=== PATIENT | male | born 1945 | race Caucasian/White ===

== ENCOUNTER → 2017-10-06 | Day surgery (SDC) | payer MEDICARE ==
[~2017-10-06] MED LIST: ATOR40TA16; GABA300C5; LACTATED RINGER'S 1000 ML INJ 1,000 ML ONE; OMEP20CA2; PROPOFOL 100 MG/10 ML INJ IV ONE; VENL37.595; VERA40TA
--- NOTE | 2017-10-06 10:38 | GIPROC ---
[facility] [address] [place], [address] COLONOSCOPY PROCEDURE REPORT EXAM DATE: 10/06/2017 PATIENT NAME: Christian Daniels MR #: [id number] BIRTHDATE: 1945 ENDOSCOPIST: Jonnie Dietrich MD ORDER #: [id number] [facility] RESIDENT: Ami Bansal STATUS: outpatient INDICATIONS: The patient is a 72 yr old male here for a colonoscopy due to patient's immediate family history of colon cancer PROCEDURE PERFORMED: Colonoscopy, screening MEDICATIONS: None, Per Anesthesia, None, and Per Anesthesia. PREP QUALITY: good ESTIMATED BLOOD LOSS: None CONSENT: The patient understands the risks and benefits of the procedure and understands that these risks include, but are not limited to: sedation, allergic reaction, infection, perforation and/or bleeding. Alternative means of evaluation and treatment include, among others: physical exam, x-rays, and/or surgical intervention. The patient elects to proceed with this endoscopic procedure. medical equipment was checked for proper function. Hand hygiene and appropriate measures for infection prevention was taken. After the risks, benefits and alternatives of the procedure were thoroughly explained, Informed consent was verified, confirmed and timeout was successfully executed by the treatment team. A digital exam revealed no abnormalities of the rectum The [id number] ([id number]) endoscope was introduced through the anus and advanced to the cecum, which was identified by both the appendix and ileocecal valve. The instrument was then slowly withdrawn as the colon was fully examined. COLON FINDINGS: The colonic mucosa appeared normal. Retroflexed views revealed no abnormalities The scope was then completely withdrawn from the patient and the procedure terminated. PROCEDURE WITHDRAWAL TIME:12.4minutes ADVERSE EVENTS: There were no complications. IMPRESSIONS: 1. The colonic mucosa appeared normal 2. Retroflexed views revealed no abnormalities 3. Revealed no abnormalities of the rectum RECOMMENDATIONS: 1. High fiber diet 2. Yearly hemoccult 3. Follow-up: GI Clinic PRN RECALL: Return 5 years Colonoscopy Jonnie Dietrich MD eSigned: Jonnie Dietrich MD 10/06/2017 10:37 AM cc: Lisset Martinez M.D.
== END | disposition home or self-care (01) ==
LOC: ESDC 07:41
PROVIDERS: ATTEND Internal Medicine Gastroenterology
DX: Z12.11 Encounter for screening for malignant neoplasm of colon (principal); Z80.0 Family history of malignant neoplasm of digestive organs
CPT/HCPCS: 00812; 45378; J7120

== ENCOUNTER 2017-10-14 05:58 | Inpatient (IN) | payer MEDICARE ==
[~2017-10-14] VITALS: Ht 167.6 cm; Wt 68.4 kg
[~2017-10-14 05:58] MED LIST changes: -ATOR40TA16; +ATOR40TA16 PO; -GABA300C5; +GABA300C5 PO; -LACTATED RINGER'S 1000 ML INJ 1,000 ML ONE; -OMEP20CA2; +OMEP20CA2 PO; -PROPOFOL 100 MG/10 ML INJ IV ONE; +TAMS0.4C4 PO; -VENL37.595; +VENL37.595 PO; -VERA40TA; +VERA40TA PO
[2017-10-14] MEDS ORDERED: LACTATED RINGER'S 1000 ML INJ 1,000 ML IV SCH (06:30)
[2017-10-14] MEDS ORDERED: LACTATED RINGER'S 1000 ML IV PRN (06:30)
[2017-10-14] MEDS ORDERED: SODIUM CHLORID 0.9% 500 ML IV PRN (06:30)
[2017-10-14] MEDS ORDERED: POVIDONE IODINE 5% (ANTISEPSIS KIT) 4 APPLICATIONS EACH NARE PRN (06:30)
[2017-10-14] MEDS ORDERED: METOPROLOL TARTRATE 25 MG TAB PO PRN (06:30)
[2017-10-14] MEDS ORDERED: CHLORHEXIDINE GLUCONATE 2 % 1 PACK (2 CLOTHS) TOPICAL PRN (06:30)
[2017-10-14] MEDS ORDERED: THROMBIN (TOPICAL) 5,000 UNIT VIAL ONE (07:21)
[2017-10-14] MEDS ORDERED: HEPARIN SODIUM - IV 10,000 UNITS/10 ML VIAL ONE (07:22)
[2017-10-14] MEDS ORDERED: GELFOAM SIZE 100 ONE (07:22)
[2017-10-14] MEDS ORDERED: BUPIVACAINE HCL PF 0.25% 30 ML VIAL ONE (07:22)
[2017-10-14] MEDS ORDERED: GENTAMICIN SULFATE 80 MG/2 ML VIAL ONE (07:22)
[2017-10-14] MEDS ORDERED: LIDOCAINE 1%/EPINEPHrine 1:100,000 SOLN 30 ML VIAL ONE (07:23)
[2017-10-14] MEDS ORDERED: HEPARIN SODIUM - SQ 10,000 UNITS/ML VIAL ONE (07:25)
[2017-10-14] MEDS ORDERED: BUPIVACAINE LIPOSOME PF 1.3% 20 ML VIAL ONE (07:41)
[2017-10-14] MEDS ORDERED: ACETAMINOPHEN 1000 MG/100 ML 100 ML IV ONE (08:12)
[2017-10-14] MEDS ORDERED: PROPOFOL 500 MG/50 ML INJ 100 ML ONE (08:13)
[2017-10-14] MEDS: ceFAZolin 1,000 MG/NS 100 ML IV SCH ×4 (09:05→12:55)
[2017-10-14] MEDS ORDERED: BUPIVACAINE LIPOSOME PF 1.3% 20 ML VIAL INFIL PRN (10:13)
[2017-10-14] MEDS ORDERED: LIDOCAINE HCL 1% PF 5 ML SYRINGE OTHER ONE (12:00)
[2017-10-14] MEDS ORDERED: ePHEDrine/NS 25 MG/5 ML SYRINGE IV ONE (12:00)
[2017-10-14] MEDS ORDERED: SODIUM CHLOR 0.9% 250 ML INJ 500 ML IV ONE (12:00)
[2017-10-14] MEDS ORDERED: ONDANSETRON HCL 4 MG/2 ML VIAL IV ONE (12:00)
[2017-10-14] MEDS ORDERED: LACTATED RINGER'S 1000 ML INJ 2,000 ML IV ONE (12:00)
[2017-10-14] MEDS ORDERED: PROPOFOL 200 MG/20 ML AMP IV ONE (12:00)
[2017-10-14] MEDS ORDERED: GLYCOPYRROLATE 1 MG/5 ML SYRINGE IV PUSH ONE (12:00)
[2017-10-14] MEDS ORDERED: PHENYLEPH/NS 1000 MCG/10 ML SYR IV ONE (12:00)
[2017-10-14] MEDS ORDERED: DEXAMETHASONE SOD PHOS 4 MG/ML VIAL IV ONE (12:00)
[2017-10-14] MEDS ORDERED: ROCURONIUM INJ 50 MG/5 ML SYRINGE IV PUSH ONE (12:00)
[2017-10-14] MEDS ORDERED: hydrALAZINE HCL 20 MG/ML VIAL IV ONE (12:00)
[2017-10-14] MEDS ORDERED: NORMOSOL R INJ 1,000 ML IV ONE (12:00)
[2017-10-14] MEDS ORDERED: ceFAZolin INJ 1,000 MG VIAL IV ONE (12:00)
[2017-10-14] MEDS ORDERED: PHENYLEPHRINE HCL 10 MG/ML VIAL IV ONE (12:00)
[2017-10-14] MEDS ORDERED: DO NOT ADM ANY ANTICOAGULANT DRUGS PRN (15:12)
[2017-10-14] MEDS ORDERED: MORPHINE SULFATE 4 MG/ML INJ IV PUSH PRN (15:15)
[2017-10-14] MEDS ORDERED: NALOXONE HCL 0.4 MG/ML AMP IV PUSH PRN (15:15)
[2017-10-14] MEDS ORDERED: ONDANSETRON HCL 4 MG/2 ML VIAL IV PUSH PRN (15:15)
[2017-10-14] MEDS ORDERED: METHOCARBAMOL 500 MG TAB PO PRN (15:15)
[2017-10-14] MEDS ORDERED: HYDROmorphone HCL PF 1 MG/ML VIAL IV PUSH PRN (15:15)
[2017-10-14] MEDS ORDERED: ACETAMINOPHEN/HYDROcodone 325 MG/5 MG TAB PO PRN (15:15)
[2017-10-14] MEDS ORDERED: *LABETALOL HCL 100 MG/20 ML VIAL PERIprocedural Use ONLY ONE (15:24)
[2017-10-14] MEDS ORDERED: MIDAZOLAM HCL 2 MG/2 ML VIAL ONE (15:26)
[2017-10-14] MEDS: D5-1/2 NS + KCL 20 MEQ INJ 1,000 ML IV SCH (16:01)
--- NOTE | 2017-10-14 16:14 | RADRPT ---
EXAM DATE/TIME: 10/14/2017 10:33 [place] COMPARISON: No previous studies available for comparison. INDICATIONS : L2-3 Laminectomy, L2-4 Posterior fusion, L4-5 revision of hardware placement. MEDICAL HISTORY : Hypertension. Arthritis. Gastroesophageal reflux disease. Smoker. SURGICAL HISTORY : Fusion, lumbar. ENCOUNTER: Initial ACUITY: 1 day PAIN SCORE: Non-responsive. LOCATION: Lumbar spine. CONCLUSION: Fluoroscopic images during revision of hardware posteriorly L2-L5. Intervertebral disc devices and la minectomies. Juan Jose Lowe MD on October 14, 2017 at 16:13 Board Certified Radiologist. This report was verified electronically.
--- NOTE | 2017-10-14 16:17 | PD.OP ---
Operative Report Date of Surgery: Oct 14, 2017 Preoperative Diagnosis: (1) Lumbar stenosis with neurogenic claudication (2) Spinal instability, lumbar 1. L2-3 spondylosis, stenosis, facet instability 2. Severe L3-4 degenerative disc disease 3. Severe L2-3 stenosis with neurogenic claudication 4. Previous L4-5 laminectomy and interbody fusion with adjacent level degeneration Postoperative Diagnosis: (1) Lumbar stenosis with neurogenic claudication (2) Spinal instability, lumbar 1. L2-3 spondylosis, stenosis, facet instability 2. Severe L3-4 degenerative disc disease 3. Severe L2-3 stenosis with neurogenic claudication 4. Previous L4-5 laminectomy and interbody fusion with adjacent level degeneration Procedure: 1. Bilateral L2-3 decompressive semi-laminectomy, medial facetectomy, foraminotomy 2. L2-3 discectomy, interbody fusion, PEEK cage, autograft and allograft bone 3. Left L2-4 posterior lateral fusion with autograft and allograft bone, DBM 4. Left L2-L5 posterior instrumentation with pedicle screw fixation, revision previous L4-5 instrumentation. 5. Right L2-3 posterior instrumentation with pedicle screw fixation Anesthesia: General Surgeon: Jorge Alberto Godfrey Radiation Oncologist(s): Cleopatra Esteves Operation and Findings: Findings: Severe bilateral L2-3 level facet and ligament hypertrophy with severe canal and lateral recess stenosis. Significant bilateral facet instability with excessive motion at the L2-3 segment. Procedure detail: The patient was brought to the operating room and general endotracheal anesthesia induced without difficulty Lines were established per Anesthesia Sequential compression devices were in place The patient was positioned prone on the concentric Rey table with the side bolsters and all extremities appropriately padded Leads for intraoperative neuro monitoring were placed prior to positioning and a baseline study obtained Appropriate timeout procedure was performed with all personnel present and in agreement The lumbar region was shaved with clippers and sterilely prepped and draped 1% Xylocaine with epinephrine was used for local infiltration over the incision site which was made at the midline L2-5 level The incision was carried sharply down to the lumbodorsal fascia which was sharply incised to the left of the L2-L5 spinous processes. Yi elevator was used for subperiosteal elevation of paraspinous musculature and fascia away from the lamina and spinous processes at the left L2-L5 levels. The deep self-retaining retractor was placed Inspection of the left L3-4 facet revealed what appeared to be a near spontaneous fusion with significant amount of hypertrophic bone along the facet and medial transverse process on the left side with no significant motion noted at the L3-4 level. Due to this finding, it was felt that a single rosa across the left L3 4 level would be sufficient for stabilization of this segment, with bilateral L2-3 instrumentation at the more unstable L2-3 level. Thus it was elected to leave the fascia intact on the right side and do the decompression from the left side with planned percutaneous screws at the right L2-3 level. The appropriate levels were verified with intraoperative C-arm The microscope was moved into place and used for the remainder of the procedure including the closure The entry point for the pedicle screws at the left L2 and L3 level were determined by anatomic and radiographic landmarks. The pedicle screw site was prepared with the awl followed by the pedicle finder and the tap. The ball tip probe was used to probe the pedicle screw site to ensure that there was no breakout through the pedicle. The appropriate size 6.5 x 45 mm Spine Wave pedicle screw was placed at each pedicle screw site The screw placement was verified with intraoperative C-arm and intraoperative neural monitoring and felt to be satisfactory. The TPS drill with a 5 mm bone bur followed by the Kerrison rongeur was used to remove the inferior two thirds of the lamina at the L2 level of the decompression and the superior third of the lamina at the L3 level of the decompression. The decompression was started on the left side and then carried across to the right side, leaving the spinous processes and interspinous ligament intact. The TPS drill was also used to remove the medial aspect of the right L2-3 facet and the majority of the left L2-3 facet. Hypertrophied ligamentum flavum was elevated away from the thecal sac and exiting nerve roots with the thin ligament dissector and resected with a 15 blade knife and Kerrison rongeur. The superior aspect of the bilateral superior L3 facet was removed with the Kerrison rongeur to perform the bilateral L2-3 foraminotomy. The thecal sac and exiting nerve root were freed up from surrounding adhesions at the left L2-3 level with the microdissectors and gently retracted medially revealing the underlying disc and annulus. There was moderate subannular disc herniation. The annulus was incised with the 11 blade knife and discectomy performed with pituitary biopsy forceps and straight and angled curettes The endplate scrapers were used to decorticate the endplates and any remaining debris was removed with the antibiotic irrigation and suction and pituitary biopsy forceps The appropriate size 8 x 10 mm lordotic PEEK cage was packed with retained lamina cancellus autograft And a small amount of demineralized bone matrix The cage was placed at the L2-3 level with a good fit of the cage. The placement was checked under the microscope and with intraoperative C-arm and felt to be satisfactory. The thecal sac and nerve roots were probed with the long blunt nerve hook and felt to be well decompressed The percutaneous screws were placed at the right L2 and L3 level by freeing up the cutaneous and superficial fascial layers with the Metzenbaum scissors and making a incision in the deep fascia at the right L2 and L3 screw entry site. The Jamshidi needle was then placed into the right L2 and L3 facet using AP and lateral C-arm imaging. The guidewires were placed at each of these levels and the Jamshidi cannula removed. The dilators were utilized along the guidewire at each level and the cannulated tap was used to prepare the pedicle screw entry site followed by placement of the Spine Wave cannulated pedicle screw on the MIS extension. The previously placed left L4-5 level rosa was removed by loosening the locking caps. A new rosa bent to the appropriate curvature was then placed at the left L2-L5 level and secured with the new locking caps, torque wrench and anti-torque device utilizing compression across the L2-3 level to achieve proper lordosis. The percutaneous rosa was placed at the right L2-3 level. The right L2-3 locking caps were secured with the torque wrench and anti-torque device, again with compression at the right L2-3 pedicle screws prior to final tightening. The entire construct was checked with intraoperative AP and lateral C-arm and felt to be satisfactory The region was well irrigated with antibiotic irrigation The posterior lateral structures at the left L2-L2 - L4 levels were decorticated with the TPS drill The shavings were left in place, to which was added the remaining autograft and allograft bone which was firmly packed in place for the posterior lateral fusion. The 7 mm flat fluted drain was left in place at the operative side and brought out through a incision at the upper lumbar region and secured to the skin with nylon suture and attached to sterile suction bleeding was carefully controlled with the bipolar forceps The closure was performed with 0 Vicryl interrupted for the deep and superficial fascia, with 3-0 Vicryl for the subcutaneous closure and 4-0 Vicryl running subcuticular closure. Dressings sterile Mastisol, Steri-Strips and Primapore was placed The patient was turned into supine position and taken to recovery room in stable condition All counts were correct at the end of the case Estimated blood loss was 300 cc No specimen was sent to pathology Neuro monitoring was stable during the procedure Jorge Alberto Godfrey MD Oct 14, 2017 16:17
[2017-10-14] MEDS: ACETAMINOPHEN/HYDROcodone 325 MG/10 MG TAB PO PRN (19:25)
[2017-10-14 20:26] VITALS: BP 132/58; PULSE 62; RESP 18; TEMP 97.9; O2SAT 100
[2017-10-14] MEDS: DOCUSATE SODIUM 100 MG/10 ML UDC NG SCH (21:00)
[2017-10-14] MEDS: GABAPENTIN 300 MG CAP PO SCH (23:39)
[2017-10-14] MEDS: VENLAFAXINE HCL XR 37.5 MG CAP PO SCH (23:39)
[2017-10-14] MEDS: KETOROLAC TROMETHAMINE 30 MG/ML (IVP) VIAL IV PUSH SCH (23:40)
[2017-10-14] MEDS: ATORVASTATIN 40 MG TAB PO SCH (23:41)
[2017-10-14] MEDS: TAMSULOSIN HCL 0.4 MG CAP PO SCH (23:41)
[2017-10-14] MEDS: PANTOPRAZOLE SOD 20 MG DELAYED RELEASE TAB PO SCH (23:41)
[2017-10-14] MEDS: VERAPAMIL HCL 40 MG TAB PO SCH (23:50)
[2017-10-15 00:36] VITALS: BP 139/101; PULSE 58; RESP 17; TEMP 97.2; O2SAT 100
[2017-10-15] MEDS: D5-1/2 NS + KCL 20 MEQ INJ 1,000 ML IV SCH ×3 (01:44→19:27)
[2017-10-15 04:36] VITALS: BP 116/53; PULSE 60; RESP 17; TEMP 97.4; O2SAT 100
[2017-10-15] MEDS: KETOROLAC TROMETHAMINE 30 MG/ML (IVP) VIAL IV PUSH SCH ×3 (05:48→23:56)
[2017-10-15 08:13] VITALS: BP 158/71; PULSE 62; RESP 20; TEMP 97.5; O2SAT 100
--- NOTE | 2017-10-15 09:07 | HHI.NSPN ---
(Rick Rhodes) History Chief Complaint: Minimal pain to the surgical incision, some anterior thigh numbness. (Rick Rhodes) Interval History 10/14: The patient presented to [facility] to have a bilateral L2-3 decompressive semi-laminectomy and discectomy with interbody fusion and PEEK cage followed by a left L2-4 posterior lateral fusion with left L2-L5 posterior instrumentation (with revision of previous L4-5 instrumentation) and right L2-3 posterior instrumentation. Post-operatively he was admitted to a regular med/ surg floor for further care and monitoring. 10/15: The patient was seen up and ambulating with a rolling walker prior to being assessed. Physical Therapy states that the patient went 850 feet and at the end he only had the fingertips on the walker. The patient says he feels great and only has 2 out of 10 pain to the surgical incision but no other midline spine pain. He has slight numbness to the anterior thighs bilaterally but no other numbness. He denies any pain or tingling down either lower extremity. Other than the anterior thighs sensation is intact and his motor strength is strong. (Rick Rhodes) Exam Results 10/13/17 10/13/17 10/14/17 10/14/17 10/15/17 10/15/17 06:00 18:00 06:00 18:00 06:00 18:00 Intake Total 3312 ml 360 ml Output Total 1190 ml 2050 ml Balance 2122 ml -1690 ml Intake Oral 100 ml 360 ml IV Total 3212 ml Output Urine Total 800 ml 1950 ml Drainage Total 90 ml 100 ml Estimated Blood Loss 300 ml Vital Signs Date Time Temp Pulse Resp B/P (MAP) Pulse Ox O2 Delivery O2 Flow Rate FiO2 10/15/17 08:13 97.5 62 20 158/71 (100) 100 10/15/17 04:36 97.4 60 17 116/53 (74) 100 10/15/17 00:36 97.2 58 17 139/101 (114) 100 10/14/17 20:26 97.9 62 18 132/58 (82) 100 10/14/17 18:00 97.4 68 14 110/66 (81) 100 Room Air 10/14/17 17:00 66 12 103/53 (70) 100 Room Air 10/14/17 16:30 84 22 115/56 (75) 99 Nasal Cannula 2 10/14/17 16:15 80 22 120/53 (75) 100 Nasal Cannula 2 10/14/17 16:00 81 18 171/79 (109) 100 Nasal Cannula 2 10/14/17 15:45 81 13 166/75 (105) 100 Nasal Cannula 2 10/14/17 15:41 77 13 167/74 (105) 100 10/14/17 15:30 79 13 188/61 (103) 100 Nasal Cannula 2 10/14/17 15:15 102 18 209/93 (131) 100 Nasal Cannula 4 10/14/17 15:10 90 16 154/68 (96) 100 Nasal Cannula 4 10/14/17 06:49 97.8 63 20 152/69 (96) 98 (Rick Rhodes) Physical Examination GENERAL: Awake & alert sitting up in the chair talking w/Physical Therapy. Affect normal. Readily interacts. No apparent distress. HEENT: Normocephalic, atraumatic. RESPIRATORY: CTAB w/o W/R/R, equal excursion, nonlaboured, on RA. CARDIOVASCULAR: S1S2 w/RRR w/grade I-II/ murmur heard at left sternal border. GASTROINTESTINAL: Abdomen soft, nontender, positive bowel sounds. GENITOURINARY: Fregoso catheter to BSD w/clear yellow urine. MUSCULOSKELETAL: In LSO brace. Moves all extremities spontaneously w/o difficulty. Midline surgical incision NTTP w/intact dressing w/several small areas of shadowing, MIR drain to bulb suction w/serosanguinous drainage. NEUROLOGICAL: AAOx3. Speech clear & appropriate. Follows simple commands w/o difficulty. Decreased sensation to anterior thighs bilaterally o/w sensation intact to light touch to the lower extremities. Motor strength is 5/5 to all major flexion & extension groups of the lower extremities. (Rick Rhodes) Lab, Micro, Other Results Recent Impressions Lumbar Spine X-Ray 10/14/17 0000 Signed Impressions: Service Date/Time: Saturday, October 14, 2017 10:33 - CONCLUSION: Fluoroscopic images during revision of hardware posteriorly L2-L5. Intervertebral disc devices and laminectomies. Juan Jose Lowe MD (Rick Rhodes) Medical Decision Making Impression and Plan Impression: (1) Lumbar stenosis with neurogenic claudication (2) Spinal instability, lumbar 1. L2-3 spondylosis, stenosis, facet instability 2. Severe L3-4 degenerative disc disease 3. Severe L2-3 stenosis with neurogenic claudication 4. Previous L4-5 laminectomy and interbody fusion with adjacent level degeneration Patient doing well post-operatively, w/some anterior thigh numbness o/w no other sensorimotor deficit. MIR drain output 190 mL since surgery as of shift change this morning. Labs still pending for today. POD #1 () s/p: 1. Bilateral L2-3 decompressive semi-laminectomy, medial facetectomy, foraminotomy 2. L2-3 discectomy, interbody fusion, PEEK cage, autograft and allograft bone 3. Left L2-4 posterior lateral fusion with autograft and allograft bone, DBM 4. Left L2-L5 posterior instrumentation with pedicle screw fixation, revision previous L4-5 instrumentation. 5. Right L2-3 posterior instrumentation with pedicle screw fixation Plan: Neuro checks. LSO brace when OOB. Mobilise patient w/assistance. Physical Therapy eval & tx. Hold pharmacologic DVT prophylaxis. Mechanical DVT prophylaxis. Will keep MIR drain and monitor output. Will d/c Fregoso catheter. ADDENDUM at 1008: Reviewed labs for today. Leukocytosis w/ neutrophilia noted, most likely inflammatory response to surgery. Will monitor. Patient has been afebrile since admission. BET (Rick Rhodes) Attending Statement The exam, history, and the medical decision-making described in the above note were completed with the assistance of the mid-level provider. I reviewed and agree with the findings presented. I attest that I had a [id number] encounter with the patient on the same day, and personally performed and documented my assessment and findings in the medical record. Pain 3/10. Mild sensory changes both thighs to light touch Motor normal LE's Ambulated well with PT Drain continued increased output Fregoso out Continue present Tx (Jorge Alberto Godfrey MD) Rick Rhodes Oct 15, 2017 09:06 Jorge Alberto Godfrey MD Oct 15, 2017 22:58
[2017-10-15] MEDS: DOCUSATE SODIUM 100 MG/10 ML UDC NG SCH ×2 (09:19→23:23)
[2017-10-15 09:26] LABS: AUTOMATED NEUTROPHIL # 11.5 TH/MM3 (1.8-7.7); BASOPHIL % 0.1 % (0.0-2.0); EOSINOPHIL % 0.1 % (0.0-4.0); HEMATOCRIT 42.2 % (39.0-51.0); HEMOGLOBIN 14.8 GM/DL (13.0-17.0); LYMPH % 7.7 % (9.0-44.0); LYMPHOCYTE # 1.1 TH/MM3 (1.0-4.8); MEAN CELL VOLUME 91.2 FL (80.0-100.0); MEAN PLATELET VOLUME 7.7 FL (7.0-11.0); MONO % 8.6 % (0.0-8.0); MONOCYTE # 1.2 TH/MM3 (0-0.9); NEUT % 83.5 % (16.0-70.0); PLATELET COUNT 198 TH/MM3 (150-450); RED BLOOD COUNT 4.62 MIL/MM3 (4.50-5.90); RED CELL DISTRIBUTION WIDTH 13.6 % (11.6-17.2); WHITE BLOOD COUNT 13.8 TH/MM3 (4.0-11.0)
[2017-10-15 09:52] LABS: BICARBONATE 30.5 MEQ/L (21.0-32.0); CALCIUM 8.9 MG/DL (8.5-10.1); CREATININE 0.81 MG/DL (0.60-1.30)
[2017-10-15 11:55] VITALS: BP 153/65; PULSE 73; RESP 20; TEMP 98; O2SAT 96
[2017-10-15] MEDS: ACETAMINOPHEN/HYDROcodone 325 MG/10 MG TAB PO PRN ×3 (12:47→23:21)
[2017-10-15 16:35] VITALS: BP 179/75; PULSE 76; RESP 20; TEMP 98.2; O2SAT 96
[2017-10-15 20:00] VITALS: BP 141/65; PULSE 65; RESP 20; TEMP 98.3; O2SAT 96
[2017-10-15] MEDS: ATORVASTATIN 40 MG TAB PO SCH (23:22)
[2017-10-15] MEDS: VENLAFAXINE HCL XR 37.5 MG CAP PO SCH (23:22)
[2017-10-15] MEDS: GABAPENTIN 300 MG CAP PO SCH (23:22)
[2017-10-15] MEDS: VERAPAMIL HCL 40 MG TAB PO SCH (23:23)
[2017-10-15] MEDS: PANTOPRAZOLE SOD 20 MG DELAYED RELEASE TAB PO SCH (23:23)
[2017-10-15] MEDS: TAMSULOSIN HCL 0.4 MG CAP PO SCH (23:23)
[2017-10-16] VITALS: BP 160/68; PULSE 77; RESP 18; TEMP 98; O2SAT 97
[2017-10-16 04:00] VITALS: BP 116/63; PULSE 65; RESP 20; TEMP 98.1; O2SAT 96
[2017-10-16] MEDS: ACETAMINOPHEN/HYDROcodone 325 MG/10 MG TAB PO PRN ×3 (04:25→19:09)
[2017-10-16] MEDS: KETOROLAC TROMETHAMINE 30 MG/ML (IVP) VIAL IV PUSH SCH ×2 (06:01→13:37)
[2017-10-16] MEDS: D5-1/2 NS + KCL 20 MEQ INJ 1,000 ML IV SCH ×2 (06:02→16:22)
[2017-10-16 08:00] VITALS: BP 103/61; PULSE 71; RESP 16; TEMP 98.6; O2SAT 94
[2017-10-16] MEDS: DOCUSATE SODIUM 100 MG/10 ML UDC NG SCH ×2 (08:47→20:51)
--- NOTE | 2017-10-16 11:13 | HHI.NSPN ---
(Rick Rhodes) History Chief Complaint: Surgical site tender when laying on it. (Rick Rhodes) Interval History 10/14: The patient presented to [facility] to have a bilateral L2-3 decompressive semi-laminectomy and discectomy with interbody fusion and PEEK cage followed by a left L2-4 posterior lateral fusion with left L2-L5 posterior instrumentation (with revision of previous L4-5 instrumentation) and right L2-3 posterior instrumentation. Post-operatively he was admitted to a regular med/ surg floor for further care and monitoring. 10/15: The patient was seen up and ambulating with a rolling walker prior to being assessed. Physical Therapy states that the patient went 850 feet and at the end he only had the fingertips on the walker. The patient says he feels great and only has 2 out of 10 pain to the surgical incision but no other midline spine pain. He has slight numbness to the anterior thighs bilaterally but no other numbness. He denies any pain or tingling down either lower extremity. Other than the anterior thighs sensation is intact and his motor strength is strong. 10/16: This morning the patient is in the chair when seen. He states he has already walked around the floor three times. He denies any pain to the lumbar spine but does say the surgical incision is sore when he lays down. He denies any pain, numbness, tingling or weakness to the lower extremities. Upon evaluation the anterior thigh numbness has essentially resolved and the remainder of his exam is unchanged. (Rick Rhodes) Exam Results 10/14/17 10/14/17 10/15/17 10/15/17 10/16/17 10/16/17 06:00 18:00 06:00 18:00 06:00 18:00 Intake Total 3312 ml 360 ml 720 ml 1000 ml Output Total 1190 ml 2050 ml 25 ml Balance 2122 ml -1690 ml 720 ml 975 ml Intake Oral 100 ml 360 ml 720 ml IV Total 3212 ml 1000 ml Output Urine Total 800 ml 1950 ml Drainage Total 90 ml 100 ml 25 ml Estimated Blood Loss 300 ml # Voids 1 # Bowel Movements 0 Vital Signs Date Time Temp Pulse Resp B/P (MAP) Pulse Ox O2 Delivery O2 Flow Rate FiO2 10/16/17 08:00 98.6 71 16 103/61 (75) 94 10/16/17 04:00 98.1 65 20 116/63 (80) 96 10/16/17 00:00 98.0 77 18 160/68 (98) 97 10/15/17 20:00 98.3 65 20 141/65 (90) 96 10/15/17 16:35 98.2 76 20 179/75 (109) 96 10/15/17 13:47 18 10/15/17 11:55 98.0 73 20 153/65 (94) 96 10/15/17 08:13 97.5 62 20 158/71 (100) 100 10/15/17 04:36 97.4 60 17 116/53 (74) 100 10/15/17 00:36 97.2 58 17 139/101 (114) 100 10/14/17 20:26 97.9 62 18 132/58 (82) 100 10/14/17 18:00 97.4 68 14 110/66 (81) 100 Room Air 10/14/17 17:00 66 12 103/53 (70) 100 Room Air 10/14/17 16:30 84 22 115/56 (75) 99 Nasal Cannula 2 10/14/17 16:15 80 22 120/53 (75) 100 Nasal Cannula 2 10/14/17 16:00 81 18 171/79 (109) 100 Nasal Cannula 2 10/14/17 15:45 81 13 166/75 (105) 100 Nasal Cannula 2 10/14/17 15:41 77 13 167/74 (105) 100 10/14/17 15:30 79 13 188/61 (103) 100 Nasal Cannula 2 10/14/17 15:15 102 18 209/93 (131) 100 Nasal Cannula 4 10/14/17 15:10 90 16 154/68 (96) 100 Nasal Cannula 4 10/14/17 06:49 97.8 63 20 152/69 (96) 98 (Rick Rhodes) Physical Examination GENERAL: Awake & alert sitting up in the chair watching TV. Affect normal. Readily interacts. No apparent distress. HEENT: Normocephalic, atraumatic. MUSCULOSKELETAL: In LSO brace. Moves all extremities spontaneously w/o difficulty. MIR drain to bulb suction w/serosanguinous drainage. NEUROLOGICAL: AAOx3. Speech clear & appropriate. Follows simple commands w/o difficulty. Sensation to anterior thighs essentially normal and o/w intact to light touch to the rest of the lower extremities. Motor strength is 5/5 to all major flexion & extension groups of the lower extremities. (Rick Rhodes) Lab, Micro, Other Results Recent Impressions Lumbar Spine X-Ray 10/14/17 0000 Signed Impressions: Service Date/Time: Saturday, October 14, 2017 10:33 - CONCLUSION: Fluoroscopic images during revision of hardware posteriorly L2-L5. Intervertebral disc devices and laminectomies. Juan Jose Lowe MD Laboratory Tests Test 10/15/17 09:00 White Blood Count 13.8 TH/MM3 Red Blood Count 4.62 MIL/MM3 Hemoglobin 14.8 GM/DL Hematocrit 42.2 % Mean Corpuscular Volume 91.2 FL Mean Corpuscular Hemoglobin 32.0 PG Mean Corpuscular Hemoglobin Concent 35.0 % Red Cell Distribution Width 13.6 % Platelet Count 198 TH/MM3 Mean Platelet Volume 7.7 FL Neutrophils (%) (Auto) 83.5 % Lymphocytes (%) (Auto) 7.7 % Monocytes (%) (Auto) 8.6 % Eosinophils (%) (Auto) 0.1 % Basophils (%) (Auto) 0.1 % Neutrophils # (Auto) 11.5 TH/MM3 Lymphocytes # (Auto) 1.1 TH/MM3 Monocytes # (Auto) 1.2 TH/MM3 Eosinophils # (Auto) 0.0 TH/MM3 Basophils # (Auto) 0.0 TH/MM3 CBC Comment DIFF FINAL Differential Comment Blood Urea Nitrogen 10 MG/DL Creatinine 0.81 MG/DL Random Glucose 101 MG/DL Calcium Level 8.9 MG/DL Sodium Level 140 MEQ/L Potassium Level 4.4 MEQ/L Chloride Level 103 MEQ/L Carbon Dioxide Level 30.5 MEQ/L Anion Gap 7 MEQ/L Estimat Glomerular Filtration Rate 93 ML/MIN (Rick Rhodes) Medical Decision Making Impression and Plan Impression: (1) Lumbar stenosis with neurogenic claudication (2) Spinal instability, lumbar 1. L2-3 spondylosis, stenosis, facet instability 2. Severe L3-4 degenerative disc disease 3. Severe L2-3 stenosis with neurogenic claudication 4. Previous L4-5 laminectomy and interbody fusion with adjacent level degeneration Patient continues to do well post-operatively, w/near resolution of the anterior thigh numbness o/w no sensorimotor deficits. Intermittent hypertension. MIR drain output 25 mL for the past 24 hrs as of shift change this morning. Physical Therapy felt the patient is able to be discharged home w/o any skilled needs but may possibly need a wheeled walker. POD #2 () s/p: 1. Bilateral L2-3 decompressive semi-laminectomy, medial facetectomy, foraminotomy 2. L2-3 discectomy, interbody fusion, PEEK cage, autograft and allograft bone 3. Left L2-4 posterior lateral fusion with autograft and allograft bone, DBM 4. Left L2-L5 posterior instrumentation with pedicle screw fixation, revision previous L4-5 instrumentation. 5. Right L2-3 posterior instrumentation with pedicle screw fixation Plan: Discussed plan of care w/patient. He states that he will no have anyone at home to help him until Friday. Neuro checks. LSO brace when OOB. Mobilise patient w/assistance. Physical Therapy eval & tx. Hold pharmacologic DVT prophylaxis. Mechanical DVT prophylaxis. Will d/c MIR drain. (Rick Rhodes) Attending Statement The exam, history, and the medical decision-making described in the above note were completed with the assistance of the mid-level provider. I reviewed and agree with the findings presented. I attest that I had a [id number] encounter with the patient on the same day, and personally performed and documented my assessment and findings in the medical record. On examination 10/16/2017 the patient is awake and alert Minimal drain output Operative chair. Dressing dry and intact Lower extremity sensory motor function intact except for complaint of mild paresthesias in the anterior thighs. Stable postop Continue therapy Discontinue drain Discontinue IV fluids (Jorge Alberto Godfrey MD) Rick Rhodes Oct 16, 2017 11:13 Jorge Alberto Godfrey MD Oct 17, 2017 20:31
[2017-10-16 12:00] VITALS: BP 115/54; PULSE 67; RESP 16; TEMP 97.8; O2SAT 97
[2017-10-16 16:00] VITALS: BP 118/58; PULSE 69; RESP 16; TEMP 98.7; O2SAT 97
[2017-10-16 19:49] VITALS: BP 134/75; PULSE 66; RESP 16; TEMP 98.2; O2SAT 96
[2017-10-16] MEDS: VENLAFAXINE HCL XR 37.5 MG CAP PO SCH (20:51)
[2017-10-16] MEDS: TAMSULOSIN HCL 0.4 MG CAP PO SCH (20:52)
[2017-10-16] MEDS: ATORVASTATIN 40 MG TAB PO SCH (20:52)
[2017-10-16] MEDS: VERAPAMIL HCL 40 MG TAB PO SCH (20:53)
[2017-10-16] MEDS: GABAPENTIN 300 MG CAP PO SCH (20:53)
[2017-10-16] MEDS: PANTOPRAZOLE SOD 20 MG DELAYED RELEASE TAB PO SCH (20:54)
[2017-10-17] VITALS: BP 118/63; PULSE 74; RESP 18; TEMP 98.4; O2SAT 97
[2017-10-17] MEDS: ACETAMINOPHEN/HYDROcodone 325 MG/10 MG TAB PO PRN ×2 (00:21→05:12)
[2017-10-17] MEDS: D5-1/2 NS + KCL 20 MEQ INJ 1,000 ML IV SCH (03:15)
[2017-10-17 04:00] VITALS: BP 141/65; PULSE 65; RESP 18; TEMP 98; O2SAT 95
[2017-10-17 08:00] VITALS: BP 118/73; PULSE 88; RESP 18; TEMP 98.4; O2SAT 96
[2017-10-17] MEDS ORDERED: HYDR-3583 PO (08:39)
--- NOTE | 2017-10-17 08:40 | HHI.DCPOC ---
Discharge Care Plan Diagnosis: (1) Lumbar stenosis with neurogenic claudication Your Health Problems Are: Difficulty with ADL Incision/Drains Exercise Tolerance Chronic Pain Goals to Promote Your Health * To prevent worsening of your condition and complications * To maintain your health at the optimal level Directions to Meet Your Goals Take your medications as prescribed Follow your dietary instruction Follow activity as directed Keep your appointments as scheduled Take your immunizations and boosters as scheduled If your symptoms worsen call your PCP, if no PCP go to Urgent Care Center or Emergency Room Smoking is Dangerous to Your Health. Avoid second hand smoke Call the 24-hour hour crisis hotline for domestic abuse at Jorge Alberto Godfrey MD Oct 17, 2017 08:40
[2017-10-17] MEDS: DOCUSATE SODIUM 100 MG/10 ML UDC NG SCH (09:40)
--- NOTE | 2017-10-17 20:00 | HHI.DS ---
Discharge Summary Admission Date Oct 14, 2017 at 08:43 Discharge Date: Oct 17, 2017 Admitting Diagnosis Lumbar stenosis, adjacent level degeneration (1) Lumbar radiculopathy Diagnosis: Principal ICD Code: M54.16 - Lumbar radiculopathy Status: Acute (2) DDD (degenerative disc disease), lumbar Diagnosis: Secondary ICD Code: M51.36 - DDD (degenerative disc disease), lumbar Status: Acute (3) Lumbar stenosis with neurogenic claudication Diagnosis: Secondary ICD Code: M48.06 - Lumbar stenosis with neurogenic claudication Status: Acute (4) Spinal instability, lumbar Diagnosis: Secondary ICD Code: M53.2X6 - Spinal instability, lumbar Status: Acute Procedures Date of Surgery: Oct 14, 2017 Preoperative Diagnosis: (1) Lumbar stenosis with neurogenic claudication (2) Spinal instability, lumbar 1. L2-3 spondylosis, stenosis, facet instability 2. Severe L3-4 degenerative disc disease 3. Severe L2-3 stenosis with neurogenic claudication 4. Previous L4-5 laminectomy and interbody fusion with adjacent level degeneration Postoperative Diagnosis: (1) Lumbar stenosis with neurogenic claudication (2) Spinal instability, lumbar 1. L2-3 spondylosis, stenosis, facet instability 2. Severe L3-4 degenerative disc disease 3. Severe L2-3 stenosis with neurogenic claudication 4. Previous L4-5 laminectomy and interbody fusion with adjacent level degeneration Procedure: 1. Bilateral L2-3 decompressive semi-laminectomy, medial facetectomy, foraminotomy 2. L2-3 discectomy, interbody fusion, PEEK cage, autograft and allograft bone 3. Left L2-4 posterior lateral fusion with autograft and allograft bone, DBM 4. Left L2-L5 posterior instrumentation with pedicle screw fixation, revision previous L4-5 instrumentation. 5. Right L2-3 posterior instrumentation with pedicle screw fixation CBC/BMP: 10/15/17 0900 10/15/17 0900 Significant Findings Laboratory Tests Test 10/15/17 09:00 White Blood Count 13.8 TH/MM3 (4.0-11.0) Neutrophils (%) (Auto) 83.5 % (16.0-70.0) Lymphocytes (%) (Auto) 7.7 % (9.0-44.0) Monocytes (%) (Auto) 8.6 % (0.0-8.0) Neutrophils # (Auto) 11.5 TH/MM3 (1.8-7.7) Monocytes # (Auto) 1.2 TH/MM3 (0-0.9) PE at Discharge Awake and alert. Sensorimotor function intact upper and lower extremities Dressing dry and intact Tolerating diet Ambulating without assist Hospital Course Patient admitted for the above noted procedure performed without complication. Postoperative course uncomplicated. Progressed well in physical therapy At time of discharge ambulating independent, pain control with oral medications , dressing dry and intact. No significant postoperative deficit Pt Condition on Discharge: Good Discharge Disposition: Discharge Home Discharge Instructions DIET: Follow Instructions for: As Tolerated, No Restrictions ACTIVITIES You can perform: Weight Bearing As Laila Activities to Avoid: Lifting/Bending, Strenuous Activity New Medications: Hydrocodone/Acetaminophen (Hydrocodone-Acetamin 10-325 mg) 10 Mg-325 Mg Tablet 1 TAB PO Q4H PRN for PAIN SCALE 6 TO 10, #90 TAB 0 Refills Continued Medications: Atorvastatin (Atorvastatin) 40 Mg Tab 40 MG PO HS Gabapentin (Gabapentin) 300 Mg Cap 2 TAB PO HS Omeprazole (Omeprazole) 20 Mg Cap 1 TAB PO HS Tamsulosin (Tamsulosin) 0.4 Mg Cap 0.4 MG PO HS for Manage Prostate Problems, #30 CAP 0 Refills Venlafaxine ER 24 HR (Venlafaxine ER 24 HR) 37.5 Mg Cap 1 TAB PO HS Verapamil (Verapamil) 40 Mg Tab 1 TAB PO HS Jorge Alberto Godfrey MD Oct 17, 2017 20:00
== END 2017-10-17 15:45 | disposition home or self-care (01) | DRG 460 ==
LOC: HSDC 05:58 → EDSTATUS 08:30 → HSDI 08:43 → N05B 18:40
PROVIDERS: ADMIT Neurological Surgery; ATTEND Neurological Surgery
PROC: 01NB0ZZ Release Lumbar Nerve, Open Approach (ICD-10-PCS; 2017-10-14)
PROC: 0SB20ZZ Excision of Lumbar Vertebral Disc, Open Approach (ICD-10-PCS; 2017-10-14)
PROC: 4A11X4G Monitoring of Peripheral Nervous Electrical Activity, Intraoperative, External Approach (ICD-10-PCS; 2017-10-14)
PROC: 0QW004Z Revision of Internal Fixation Device in Lumbar Vertebra, Open Approach (ICD-10-PCS; 2017-10-14)
PROC: 0SG10AJ Fusion of 2 or more Lumbar Vertebral Joints with Interbody Fusion Device, Posterior Approach, Anterior Column, Open Approach (ICD-10-PCS; principal; 2017-10-14 08:36)
DX: M48.062 Spinal stenosis, lumbar region with neurogenic claudication (principal); M47.26 Other spondylosis with radiculopathy, lumbar region; M51.16 Intervertebral disc disorders with radiculopathy, lumbar region
CPT/HCPCS: 72100; 76000; 80048; 85025; 86850; 86900; 86901; 87015; 87070; 87102; 87116; 87205; 87206; 94150; C1713; C9290; J0131; J0360; J0690; J1100; J1580; J1644; J1885; J2250; J2370; J2405; J3010; J3480; J7050; J7120; L0484